=== PATIENT | male | born 1995 | race Caucasian/White ===

== ENCOUNTER → 2022-02-15 | Outpatient (CLI) | payer BC ==
--- NOTE | 2022-02-15 09:23 | US ---
EXAMINATION TYPE: US abdomen complete DATE OF EXAM: 02/15/2022 COMPARISON: NONE CLINICAL HISTORY: R10.12 LUQ ABD PAIN. Generalized left side pain. EXAM MEASUREMENTS: Liver Length: 18.4 cm Gallbladder Wall: 0.2 cm CBD: 0.3 cm Spleen: 12.1 cm Right Kidney: 11.1 x 5.3 x 4.0 cm Left Kidney: 12.9 x 4.6 x 4.7 cm Pancreas: Limited evaluation, obscured by bowel gas Liver: Echogenic and heterogenous Gallbladder: wnl Evidence for sonographic Tejeda's sign: neg CBD: wnl Spleen: Upper limits of normal in size, appears heterogenous Right Kidney: No hydronephrosis or masses seen Left Kidney: No hydronephrosis or masses seen Upper IVC: wnl Abd Aorta: Limited evaluation of mid aorta due to bowel gas IMPRESSION: 1. Hepatomegaly
== END | disposition home or self-care (01) ==
LOC: RADUSWWP 08:44
PROVIDERS: ATTEND Internal Medicine
DX: R16.0 Hepatomegaly, not elsewhere classified (principal)
CPT/HCPCS: 76700